=== PATIENT | female | born 1960 | race Caucasian/White ===

== ENCOUNTER 2016-12-24 14:03 | Emergency (ER) | payer OTHER ==
[~2016-12-24] VITALS: Ht 152.4 cm; Wt 75.0 kg
[~2016-12-24 14:03] MED LIST: ACIPHEX20 MG PO; ASPIR-MOX 325325 MG PO; BENTYL10 MG PO; CALCIUM + D 601 EACH PO; CALCIUM 600 +1 EAC6 PO; COUMADIN1 MG PO; COUMADIN5 MG PO; DELTASONE10 MG PO; DEPAKOTE125 MG PO; DEPAKOTE250 MG PO; DEPAKOTE500 MG PO; PHENOBARBITAL PO; PHENOBARBITAL32.4 MG PO; PHENOBARBITAL60 MG PO; POTASSIUM CHLORIDE PO; POTASSIUM-9999 MG PO; PREDNISONE10 MG PO; SIMVASTATIN10 MG PO; SIMVASTATIN20 MG PO; TYLENOL EXTRA500 MG PO; WARFARIN SODIUM1 GM MC
[2016-12-24 16:03] VITALS: BP 110/85
== END 2016-12-24 16:04 | disposition home or self-care (01) ==
LOC: EME 14:03
DX: S20.212A Contusion of left front wall of thorax, initial encounter (principal); W22.01XA Walked into wall, initial encounter; I10 Essential (primary) hypertension; R56.9 Unspecified convulsions; Z87.442 Personal history of urinary calculi
CPT/HCPCS: 71020; 93005; 99281; 99284

== ENCOUNTER 2017-09-11 09:52 | Emergency (ER) | payer OTHER ==
[~2017-09-11] VITALS: Ht 152.4 cm; Wt 83.3 kg
[2017-09-11 11:53] VITALS: BP 156/84
== END 2017-09-11 11:54 | disposition home or self-care (01) ==
LOC: EME 09:52
DX: S20.212A Contusion of left front wall of thorax, initial encounter (principal); S20.02XA Contusion of left breast, initial encounter; W01.0XXA Fall on same level from slipping, tripping and stumbling without subsequent striking against object, initial encounter; I10 Essential (primary) hypertension; G40.909 Epilepsy, unspecified, not intractable, without status epilepticus; E27.1 Primary adrenocortical insufficiency; F32.9 Major depressive disorder, single episode, unspecified; Z87.442 Personal history of urinary calculi; Z86.718 Personal history of other venous thrombosis and embolism; Z93.2 Ileostomy status; Z88.5 Allergy status to narcotic agent; Z88.6 Allergy status to analgesic agent; Z88.8 Allergy status to other drugs, medicaments and biological substances
CPT/HCPCS: 71046; 99281; 99284

== ENCOUNTER 2017-09-16 15:38 | Emergency (ER) | payer OTHER ==
[~2017-09-16] VITALS: Ht 152.4 cm; Wt 81.3 kg
[2017-09-16 15:43] VITALS: BP 159/138
== END 2017-09-16 18:30 | disposition home or self-care (01) ==
LOC: EME 15:38
DX: S20.219A Contusion of unspecified front wall of thorax, initial encounter (principal); S20.02XA Contusion of left breast, initial encounter; N63.20 Unspecified lump in the left breast, unspecified quadrant; W18.30XA Fall on same level, unspecified, initial encounter; E78.00 Pure hypercholesterolemia, unspecified; Z88.5 Allergy status to narcotic agent; Z88.6 Allergy status to analgesic agent; Z79.01 Long term (current) use of anticoagulants
CPT/HCPCS: 99281; 99284

== ENCOUNTER 2017-12-14 19:30 | Emergency (ER) | payer OTHER ==
[~2017-12-14] VITALS: Ht 152.4 cm; Wt 85.6 kg
[2017-12-14 21:43] LABS: HEMATOCRIT 41.1 % (36.0-46.0); HEMOGLOBIN 14.1 G/DL (11.9-15.5); MCH 34.9 PG (29.0-34.0); MCHC 34.3 G/DL (30.0-36.0); MCV 101.7 FL (83-99); PLATELET COUNT 172 K/uL (156-360); RBC DIS.WIDTH-CV 12.4 % (11.8-14.6); RBC DIS.WIDTH-SD 47.2 % (39-53); RED BLOOD COUNT 4.04 M/uL (3.80-5.20); WHITE BLOOD COUNT 4.9 K/uL (4.1-10.2)
[2017-12-14 21:49] LABS: INTER. NORMALIZED RATIO 2.2
[2017-12-14 21:52] LABS: CHLORIDE 112 mEq/L (99-109); POTASSIUM 4.3 mEq/L (3.7-5.4); SODIUM 141 mEq/L (136-147)
[2017-12-14 21:53] LABS: GLUCOSE 82 mg/dL (70-99)
[2017-12-14 21:57] LABS: CREATININE 0.9 mg/dL (0.6-1.3); GFR ESTIMATE (CALCULATED) > 59 mL/min/
[2017-12-14 21:58] LABS: UREA NITROGEN (BUN) 28 mg/dL (9-23)
[2017-12-14 22:41] VITALS: BP 128/68
== END 2017-12-14 22:42 | disposition home or self-care (01) ==
LOC: EME 19:30
DX: S00.93XA Contusion of unspecified part of head, initial encounter (principal); M62.838 Other muscle spasm; W06.XXXA Fall from bed, initial encounter; Y92.003 Bedroom of unspecified non-institutional (private) residence as the place of occurrence of the external cause; F32.9 Major depressive disorder, single episode, unspecified; G40.909 Epilepsy, unspecified, not intractable, without status epilepticus; I10 Essential (primary) hypertension; E27.1 Primary adrenocortical insufficiency; Z87.442 Personal history of urinary calculi; Z86.718 Personal history of other venous thrombosis and embolism; Z79.01 Long term (current) use of anticoagulants; Z88.5 Allergy status to narcotic agent; Z88.6 Allergy status to analgesic agent
CPT/HCPCS: 70450; 72125; 80048; 85027; 85610; 99281; 99284